=== PATIENT | female | born 1990 | race Caucasian/White ===

== ENCOUNTER 2016-08-07 23:39 | Emergency (ER) | payer OTHER ==
[2016-08-08 01:37] LABS: Basophils % (Auto) 0.8 % (0.0-1.8); Hematocrit 37.2 % (30.3-42.9); Hemoglobin 12.2 gm/dl (10.1-14.3); Mean Corpuscular HGB Conc 33 % (30-34); Mean Corpuscular Hemoglobin 31 pg (28-32); Mean Corpuscular Volume 93 fl (79-97); Platelet Count 229 K/mm3 (140-440); Red Cell Distribution Width 13.2 % (13.2-15.2)
[2016-08-08 01:59] LABS: Bilirubin,Urine NEG (Negative); Blood,Urine LG (Negative); Ketones,Urine NEG (Negative); Leukocyte Esterase,Urine NEG (Negative); Mucus,Urine 2+ /HPF; Nitrite,Urine NEG (Negative); Urobilinogen,Urine < 2.0 mg/dL (<2.0)
[2016-08-08 02:00] LABS: RBC,Urine > 182.0 /HPF (0.0-6.0)
--- NOTE | 2016-08-08 03:18 | Ultrasound Report ---
FINAL REPORT PROCEDURE: US OB TRANSVAGINAL TECHNIQUE: Real-time transabdominal and transvaginal sonography of the uterus, placenta, amniotic fluid, adnexa, and fetus was performed with image documentation. Measurements were obtained to determine age/size. M-mode Doppler was used to document heartbeat. CPT 76969 and 61492 HISTORY: vag bleeding COMPARISON: No prior studies are available for comparison. FINDINGS: The uterus size is 8.7 x 3.9 x 4.5 centimeters. The endometrial pattern is thickened at 21 millimeters. No gestational sac is seen on this study. Both ovaries have normal size and echogenicity. No fluid in the lower pelvis. The findings are most consistent with early . Followup studies could include serial beta HCG levels and repeat ultrasound as clinically indicated. Ectopic or failure is not excluded on the basis of this single study.. IMPRESSION: There is a slightly thickened endometrial pattern in the uterus. No gestational sac is seen at this time. Both ovaries are normal. The findings are most consistent with early or failure. Ectopic is not excluded. Followup studies should include serial beta HCG levels and repeat ultrasound according to clinical signs.
--- NOTE | 2016-08-08 03:20 | Ultrasound Report ---
FINAL REPORT PROCEDURE: Ob ultrasound, transvaginal and transabdominal TECHNIQUE: Real-time transabdominal and transvaginal sonography of the uterus, placenta, amniotic fluid, adnexa, and fetus was performed with image documentation. Measurements were obtained to determine age/size. M-mode Doppler was used to document heartbeat. CPT 20422 and 53388 HISTORY: vag bleeding COMPARISON: No prior studies are available for comparison. FINDINGS: The uterus size is 8.7 x 3.9 x 4.5 centimeters. The endometrial pattern is thickened at 21 millimeters. No gestational sac is seen on this study. Both ovaries have normal size and echogenicity. No fluid in the lower pelvis. The findings are most consistent with early . Followup studies could include serial beta HCG levels and repeat ultrasound as clinically indicated. Ectopic or failure is not excluded on the basis of this single study.. IMPRESSION: There is a slightly thickened endometrial pattern in the uterus. No gestational sac is seen at this time. Both ovaries are normal. The findings are most consistent with early or failure. Ectopic is not excluded. Followup studies should include serial beta HCG levels and repeat ultrasound according to clinical signs. PROCEDURE: TECHNIQUE: HISTORY: COMPARISON: FINDINGS: IMPRESSION:
--- NOTE | 2016-08-08 10:18 | Emergency Department Report ---
ED General Adult HPI - General Chief complaint: Vaginal Bleeding Stated complaint: VAGINAL BLEEDING Time Seen by Provider: 08/08/16 10:16 Source: patient Mode of arrival: Ambulatory Limitations: No Limitations - History of Present Illness Initial comments: Patient states that her last normal menses was June 11. For the past few days she 's been having vaginal spotting. She states that she is 5 with one prior spontaneous miscarriage and one live daughter. She does not complain of any significant abdominal pain or cramping. She is not actively bleeding at this time. She states that she has not yet seen an OB doctor as her insurance is yet pending. -: hour(s) Quality: other (had some cramping prior but this is resolved) Consistency: now resolved Improves with: none Worsens with: none Associated Symptoms: denies other symptoms - Related Data Allergies Allergy/AdvReac Type Severity Reaction Status Date / Time No Known Allergies Allergy Unverified 08/08/16 01:02 ED Review of Systems ROS: Stated complaint: VAGINAL BLEEDING Other details as noted in HPI Constitutional: denies: chills, fever Eyes: denies: eye pain, eye discharge, vision change ENT: denies: ear pain, throat pain Respiratory: denies: cough, shortness of breath, wheezing Cardiovascular: denies: chest pain, palpitations Endocrine: no symptoms reported Gastrointestinal: as per HPI. denies: nausea, vomiting, diarrhea Genitourinary: abnormal menses. denies: urgency, dysuria, discharge Musculoskeletal: denies: back pain, joint swelling, arthralgia Skin: denies: rash, lesions Neurological: denies: headache, weakness, paresthesias Psychiatric: denies: anxiety, depression Hematological/Lymphatic: denies: easy bleeding, easy bruising ED Past Medical Hx - Past Medical History Previous Medical History?: No - Surgical History Additional Surgical History: foot surgery - Social History Smoking Status: Never Smoker Substance Use Type: None ED Physical Exam - General Limitations: No Limitations General appearance: alert, in no apparent distress - Head Head exam: Present: atraumatic, normocephalic - Eye Eye exam: Present: normal appearance. Absent: scleral icterus - ENT ENT exam: Present: mucous membranes moist - Neck Neck exam: Present: normal inspection - Respiratory Respiratory exam: Present: normal lung sounds bilaterally. Absent: respiratory distress - Cardiovascular Cardiovascular Exam: Present: regular rate, normal rhythm. Absent: systolic murmur, diastolic murmur, rubs, gallop - GI/Abdominal GI/Abdominal exam: Present: soft, normal bowel sounds. Absent: distended, tenderness, guarding, rebound, rigid, organomegaly, mass, bruit, pulsatile mass , hernia - Extremities Exam Extremities exam: Present: normal inspection - Back Exam Back exam: Present: normal inspection - Neurological Exam Neurological exam: Present: alert, oriented X3, CN II-XII intact. Absent: motor sensory deficit - Psychiatric Psychiatric exam: Present: normal affect, normal mood - Skin Skin exam: Present: warm, dry, intact, normal color. Absent: rash ED Course Vital Signs 08/08/16 08/08/16 08/08/16 01:01 05:49 07:38 Temperature 98.5 F 98.1 F Pulse Rate 67 66 Respiratory 14 12 Rate Blood Pressure 115/81 Blood Pressure 127/79 [Left] O2 Sat by Pulse 100 100 100 Oximetry 08/08/16 08/08/16 08/08/16 07:48 08:00 08:15 Temperature Pulse Rate Respiratory Rate Blood Pressure 90/53 90/53 Blood Pressure [Left] O2 Sat by Pulse 100 99 98 Oximetry 08/08/16 08/08/16 08/08/16 09:00 09:31 10:00 Temperature Pulse Rate Respiratory Rate Blood Pressure 99/55 90/53 80/36 Blood Pressure [Left] O2 Sat by Pulse 100 97 96 Oximetry 08/08/16 10:30 Temperature Pulse Rate Respiratory Rate Blood Pressure 82/39 Blood Pressure [Left] O2 Sat by Pulse 99 Oximetry ED Medical Decision Making - Lab Data Result diagrams: 08/08/16 01:10 Laboratory Results - last 24 hr 08/08/16 08/08/16 08/08/16 01:10 01:10 01:10 WBC 9.0 RBC 4.00 Hgb 12.2 Hct 37.2 MCV 93 MCH 31 MCHC 33 RDW 13.2 Plt Count 229 Lymph % (Auto) 34.2 [place] % (Auto) 5.8 Eos % (Auto) 1.0 Baso % (Auto) 0.8 Lymph # 3.1 [place] # 0.5 Eos # 0.1 Baso # 0.1 Seg Neutrophils % 58.2 Seg Neutrophils # 5.3 HCG, Qual Positive HCG, Quant 2905 H Urine Color Urine Turbidity Urine pH Ur Specific [place] Urine Protein Urine Glucose (UA) Urine Ketones Urine Blood Urine Nitrite Urine Bilirubin Urine Urobilinogen Ur Leukocyte Esterase Urine WBC (Auto) Urine RBC (Auto) U Epithel Cells (Auto) Urine Mucus Blood Type Antibody Screen FRANCINE Antibody Screen 08/08/16 08/08/16 01:13 01:32 WBC RBC Hgb Hct MCV MCH MCHC RDW Plt Count Lymph % (Auto) [place] % (Auto) Eos % (Auto) Baso % (Auto) Lymph # [place] # Eos # Baso # Seg Neutrophils % Seg Neutrophils # HCG, Qual HCG, Quant Urine Color Yellow Urine Turbidity Clear Urine pH 6.0 Ur Specific [place] 1.024 Urine Protein 30 mg/dl Urine Glucose (UA) Neg Urine Ketones Neg Urine Blood Lg Urine Nitrite Neg Urine Bilirubin Neg Urine Urobilinogen < 2.0 Ur Leukocyte Esterase Neg Urine WBC (Auto) 0.0 Urine RBC (Auto) > 182.0 U Epithel Cells (Auto) 1.0 Urine Mucus 2+ Blood Type A NEGATIVE Antibody Screen TNR FRANCINE Antibody Screen Negative - Radiology Data interpreted by me: According to radiologist's the ultrasound was most consistent with early . However obviously ectopic could not be excluded. Critical care attestation.: If time is entered above; I have spent that time in minutes in the direct care of this critically ill patient, excluding procedure time. 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 Repeat ultrasound and blood work are necessary. Return any significant abdominal pain or bleeding weakness or any acute change. Referrals: PRIMARY CARE, [Primary Care Provider] - 3-5 Days NIDIA MAYER MD [Staff Physician] - 2-3 Days Time of Disposition: 10:57
[2016-08-08 10:55] VITALS: BP 82/39
== END 2016-08-08 11:08 | disposition home or self-care (01) ==
LOC: ED 23:39
DX: O46.91 Antepartum hemorrhage, unspecified, first trimester (principal); Z3A.01 Less than 8 weeks gestation of pregnancy
CPT/HCPCS: 36415; 76801; 76817; 81001; 84702; 84703; 85025; 86850; 86900; 86901

== ENCOUNTER 2018-11-17 17:53 | Outpatient (CLI) | payer OTHER ==
[2018-11-17 18:30] VITALS: BP 112/64
[2018-11-17 21:07] LABS: Hematocrit 28.5 % (30.3-42.9); Hemoglobin 9.8 gm/dl (10.1-14.3); Mean Corpuscular HGB Conc 34 % (30-34); Mean Corpuscular Volume 90 fl (79-97); Platelet Count 201 K/mm3 (140-440); Red Blood Count 3.16 M/mm3 (3.65-5.03); Red Cell Distribution Width 14.8 % (13.2-15.2)
[2018-11-17 21:17] LABS: INR 1.06 (0.87-1.13)
[2018-11-17 21:18] LABS: Partial Thromboplastin Time 25.8 Sec. (24.2-36.6)
--- NOTE | 2018-11-17 22:13 | Ultrasound Report ---
ULTRASOUND OBSTETRIC LIMITED INDICATION / CLINICAL INFORMATION: Placental abruption. COMPARISON: None available. FINDINGS: HEART RATE (beats per minute): 148 AMNIOTIC FLUID INDEX (cm) = 12.0 -- within normal limits PRESENTATION: Cephalic. ADDITIONAL FINDINGS: Placenta is anterior fundal and free of the os. No placental abruption. IMPRESSION: 1. No placental abruption. No acute findings. Signer Name: Griselda Garcia MD Signed: 11/17/2018 10:08 PM Workstation Name: [id number]
== END 2018-11-17 23:45 | disposition home or self-care (01) ==
LOC: TRG 17:53 → LD 18:18 → TRG 23:45
PROVIDERS: ATTEND Obstetrics & Gynecology
DX: O99.013 Anemia complicating pregnancy, third trimester (principal); Z3A.32 32 weeks gestation of pregnancy
CPT/HCPCS: 36415; 59025; 76815; 85027; 85384; 85610; 85730